=== PATIENT | male | born 2000 | race Two or more races ===

== ENCOUNTER 2020-10-29 21:04 | Inpatient (IN) | payer MEDICAID, OTHER ==
[~2020-10-29] VITALS: Ht 175.3 cm; Wt 86.2 kg
[2020-10-29] MEDS ORDERED: NALOXONE HCL 0.4 MG/ML VIAL IV ONE ×2 (21:30→22:30)
[2020-10-29 21:43] LABS: Basophils # (auto) 0.1 10 ^3/uL (0-0.2); Basophils % (auto) 0.3 % (0.0-2.0); Eosinophils # (auto) 0.1 10 ^3/uL (0-0.8); Eosinophils % (auto) 0.6 % (0.0-7.0); Hematocrit 52.7 % (41.0-53.0); Hemoglobin 17.2 g/dL (13.5-17.5); Lymphocytes # (auto) 2.7 10 ^3/uL (0.4-5.4); Lymphocytes % (auto) 14.1 % (10.0-50.0); Mean Corpuscular Hemoglobin 31.8 pg (28.0-32.0); Mean Corpuscular Hgb Conc. 32.6 g/dL (32.0-36.0); Mean Corpuscular Volume 97.7 fL (80.0-100.0); Monocytes # (auto) 1.4 10 ^3/uL (0-1.3); Monocytes % (auto) 7.4 % (0.0-12.0); Neutrophils % (auto) 77.6 % (37.0-80.0); Platelet Count (auto) 285 10^3/uL (140-450); Red Cell Distribution Width 13.3 % (11.8-14.3); White Blood Cell 19.3 10^3/uL (4.4-10.8)
[2020-10-29] MEDS ORDERED: SODIUM CHLORIDE 0.9% 1,000 ML IV ONE (21:45)
[2020-10-29 21:58] LABS: Calcium 8.1 mg/dL (8.5-10.1); Potassium 3.4 mmol/L (3.5-5.1)
[2020-10-29 22:03] LABS: BUN/Creatinine Ratio 8.8; Bilirubin, Total 0.3 mg/dL (0.2-1.0); Total Protein 7.5 g/dL (6.4-8.2)
[2020-10-29] MEDS ORDERED: THIAMINE 100mg/ml INJ (200mg/2ml VIAL) IV ONE (23:15)
[2020-10-30 05:10] LABS: Alcohol, Urine < 3.0 mg/dL (0-10); Amphetamine Screen, Urine NEGATIVE (NEGATIVE); Barbiturate Scree,Urine NEGATIVE (NEGATIVE); Benzodiazephine Screen, Urine NEGATIVE (NEGATIVE); Cannabinoid Screen, Urine POSITIVE (NEGATIVE); Cocaine Screen, Urine NEGATIVE (NEGATIVE); Phencyclidine Screen, Urine NEGATIVE (NEGATIVE)
[2020-10-30 05:16] LABS: Opiate Scree,Urine NEGATIVE (NEGATIVE)
[2020-10-30] MEDS ORDERED: cefTRIAXone 1GM/50ML D5W 50 ML IV SCH (09:00)
[2020-10-30] MEDS ORDERED: ONDANSETRON HCL 4 MG/2 ML VIAL IV PRN (09:00)
[2020-10-30] MEDS ORDERED: MORPHINE SULF INJ 2 MG/ML SYRINGE 1ML IV PRN (09:00)
[2020-10-30] MEDS ORDERED: ACETAMINOPHEN 500 MG TAB PO PRN (09:00)
[2020-10-30] MEDS ORDERED: HYDROcodone-ACET 5/325MG TAB PO PRN (09:00)
[2020-10-30] MEDS ORDERED: POTASSIUM CHL 20 Meq TABLET PO ONE (09:15)
[2020-10-30 09:17] LABS: Urine Bacteria NONE SEEN /hpf (None Seen); Urine Blood Negative /uL (Negative); Urine Hyaline Cast FEW /lpf (0 - 2); Urine Mucus FEW (None Seen); Urine Specific Gravity 1.016 (1.001-1.035); Urine WBC 1 /hpf (0 - 3)
[2020-10-30] MEDS ORDERED: ASCORBIC ACID 1,000 MG TAB PO SCH (10:00)
[2020-10-30] MEDS ORDERED: AZITHROMYCIN 500MG/D5WorNS 250ml IV SCH (10:00)
[2020-10-30] MEDS ORDERED: CHOLECALCIFEROL (VITD3) 2,000 UNIT CAP PO SCH (10:00)
[2020-10-30] MEDS ORDERED: DexAMETHasone SOD PHOS 10MG/1ML VIAL INJ IV SCH (10:00)
[2020-10-30] MEDS ORDERED: FAMOTIDINE 20 MG TAB PO SCH (10:00)
[2020-10-30] MEDS ORDERED: ZINC SULFATE 220mg CAP or TAB PO SCH (10:00)
[2020-10-30] MEDS: ENOXAPARIN SOD 40 MG/0.4 ML SYRINGE SC SCH (10:26)
[2020-10-30] MEDS: BUDESONIDE (INHALATION) 180 MCG IH IN SCH ×2 (10:54→22:16)
[2020-10-30] MEDS ORDERED: FOLIC ACID 1 MG, MULTIPLE VITAMIN 10 ML, MAGNESIUM SULF SDV 50% 8 MEQ, THIAMINE INJ 100... INJ SCH ×5 (12:00)
[2020-10-30 12:08] LABS: CRP High Sensitivity 4.28 mg/dL (< 0.3)
[2020-10-30] MEDS: ALBUTEROL SULF HFA 90MCG INH 200DOSE IN PRN (22:16)
[2020-10-31] MEDS: ENOXAPARIN SOD 40 MG/0.4 ML SYRINGE SC SCH (00:21)
[2020-10-31 02:01] VITALS: BP 114/74
[2020-10-31 07:07] LABS: Basophils # (auto) 0 10 ^3/uL (0-0.2); Basophils % (auto) 0.1 % (0.0-2.0); Eosinophils # (auto) 0 10 ^3/uL (0-0.8); Eosinophils % (auto) 0.1 % (0.0-7.0); Hematocrit 49.6 % (41.0-53.0); Hemoglobin 16.4 g/dL (13.5-17.5); Lymphocytes # (auto) 1.5 10 ^3/uL (0.4-5.4); Lymphocytes % (auto) 8.9 % (10.0-50.0); Mean Corpuscular Hemoglobin 32.5 pg (28.0-32.0); Mean Corpuscular Hgb Conc. 33.1 g/dL (32.0-36.0); Mean Corpuscular Volume 98.1 fL (80.0-100.0); Monocytes # (auto) 1.2 10 ^3/uL (0-1.3); Monocytes % (auto) 7.1 % (0.0-12.0); Neutrophils # (auto) 14.2 10 ^3/uL (1.6-8.6); Neutrophils % (auto) 83.8 % (37.0-80.0); Nucleated Red Blood Cells % 0.1 %; Platelet Count (auto) 262 10^3/uL (140-450); Red Blood Cells 5.05 10^6/uL (4.5-5.90); Red Cell Distribution Width 13.6 % (11.8-14.3); White Blood Cell 16.9 10^3/uL (4.4-10.8)
[2020-10-31 07:09] LABS: Albumin 3.5 g/dL (3.4-5.0); Calcium 9.1 mg/dL (8.5-10.1); Potassium 3.8 mmol/L (3.5-5.1)
[2020-10-31 07:13] LABS: BUN/Creatinine Ratio 16.9; Bilirubin, Total 1.1 mg/dL (0.2-1.0); Total Protein 7.3 g/dL (6.4-8.2)
[2020-10-31] MEDS: BUDESONIDE (INHALATION) 180 MCG IH IN SCH (08:45)
[2020-10-31] MEDS: ALBUTEROL SULF HFA 90MCG INH 200DOSE IN PRN (09:05)
== END 2020-10-31 07:46 | disposition left against medical advice (07) | DRG 139 ==
LOC: ER 21:04 → TELE 21:05
PROVIDERS: ADMIT Nurse Practitioner Acute Care; ATTEND Nurse Practitioner Acute Care
DX: J18.1 Lobar pneumonia, unspecified organism (principal); J96.01 Acute respiratory failure with hypoxia; E87.6 Hypokalemia; G92 Toxic encephalopathy; N17.0 Acute kidney failure with tubular necrosis; F12.90 Cannabis use, unspecified, uncomplicated; Z20.828 Contact with and (suspected) exposure to other viral communicable diseases; R73.9 Hyperglycemia, unspecified; F19.10 Other psychoactive substance abuse, uncomplicated; D72.829 Elevated white blood cell count, unspecified
CPT/HCPCS: 36415; 71045; 80053; 80307; 80320; 81001; 82728; 83036; 83615; 83735; 85025; 85379; 86141; 87040; 87426; 87804; 94640; 96361; 96374; 96375; 96376; G0378; J0696; J1100; J2405

== ENCOUNTER 2024-11-20 05:33 | Inpatient (IN) | payer MEDICAID, OTHER ==
[~2024-11-20] VITALS: Ht 172.7 cm; Wt 79.5 kg
[2024-11-20 06:00] VITALS: PULSE 124; RESP 22; O2SAT 75
--- NOTE | 2024-11-20 06:26 | DVH ---
CHEST RADIOGRAPH Indication: Overdose Technique: Single frontal view of the chest was obtained Comparison: CHEST PORTABLE on DOS: 10/31/20 FINDINGS: Lines and Tubes: None Lungs: Bilateral opacities. Pleura: No effusion. No pneumothorax. Cardiomediastinal contours: Unremarkable Bones: No acute osseous abnormality. IMPRESSION: 1. Bilateral opacities which may reflect pulmonary edema or sequelae of aspiration.
[2024-11-20] MEDS: SODIUM CHLORIDE 0.9% 1,000 ML IV ONE (06:29)
--- NOTE | 2024-11-20 06:33 | ED.PDOC ---
Altered Mental Status HPI Comments 24Y M presents to ED via EMS for chief complaint overdose. Per EMS, pt took pills last night and became lethargic around 0330 today. Pt then became unresponsive and apneic at approximately 0500, which is when the family called 911. Upon EMS arrival, pt was bagged on arrival as O2sat was in the 70s and pt was cyanotic. Pt was provided Narcan 4mg IN and 4.5mg IV. Pt woke up after being given Narcan. Chief Complaint: Overdose Time Seen by MD: 05:55 Primary Care Provider: STEVEN Reviewed Notes: Nurses Notes, Damaged Freight Inspector Notes, Medications, Allergies Allergies: Coded Allergies: NO KNOWN ALLERGIES (Unverified , 08/13/16) Information Source: Patient, Relative (Mother), Emergency Med Personnel Mode of Arrival: EMS Brought in by: EMS Severity: Moderate Timing: Hours Duration: Since onset Quality: Decreased Alertness Recent: None History of: None Associated Signs and Symptoms: None Past Medical History PAST MEDICAL HISTORY: Unobtainable Surgical History: Unobtainable Family History Family History: Unobtainable Social History Smoker: Secondhand Alcohol: Unobtainable Drugs: Unobtainable Lives In: Home Constitutional: reports: weakness; denies: chills, diaphoresis, fatigue, fever, malaise, sweats, others EENTM: denies: blurred vision, double vision, ear bleeding, ear discharge, ear drainage, ear pain, ear ringing, eye pain, eye redness, hearing loss, mouth pain, mouth swelling, nasal discharge, nose bleeding, nose congestion, nose pain, photophobia, tearing, throat pain, throat swelling, voice changes, others Respiratory: denies: cough, hemoptysis, orthopnea, SOB at rest, shortness of breath, SOB with excertion, stridor, wheezing, others Cardiovascular: denies: chest pain, dizzy spells, diaphoresis, Dyspnea on ex ertion, edema, irregular heart beat, left arm pain, lightheadedness, palpitations, PND, syncope, others Gastrointestinal: denies: abdomen distended, abdominal pain, blood streaked bowels, constipated, diarrhea, dysphagia, difficulty swallowing, hematemesis, melena, nausea, poor appetite, poor fluid intake, rectal bleeding, rectal pain, vomiting, others Genitourinary: denies: burning, dysuria, flank pain, frequency, hematuria, incontinence, penile discharge, penile sore, pain, testicle pain, testicle swelling, urgency, others Neurological: denies: dizziness, fainting, headache, left sided numbness, left sided weakness, numbness, paresthesia, pre-existing deficit, right sided numbness, right sided weakness, seizure, speech problems, tingling, tremors, weakness, others Musculoskeletal: denies: back pain, gout, joint pain, joint swelling, muscle pain, muscle stiffness, neck pain, others Integumetry: denies: bruises, change in color, change in hair/nails, dryness, laceration, lesions, lumps, rash, wounds, others Allergic/Immunocompromised: denies: Difficulty Healing, Frequent Infections, Hives, Itching, others Hematologic/Lymphatic: denies: anemia, blood clots, easy bleeding, easy bruising, swollen glands, others Endocrine: denies: excessive hunger, excessive sweating, excessive thirst, excessive urination, flushing, intolerance to cold, intolerance to heat, unexplained weight gain, unexplained weight loss, others Psychiatric: denies: anxiety, bipolar disorder, depression, hopeless, panic disorder, schizophrenia, sleepless, suicidal, others All Other Systems: Reviewed and Negative Physical Exam General Appearance: No Apparent Distress, Normal HEENT: Normal ENT Inspection, Pharynx Normal, TMs Normal Neck: Full Range of Motion, Non-Tender, Normal, Normal Inspection Respiratory: Chest Non-Tender, Lungs Clear, No Accessory Muscle Use, No Respiratory Distress, Normal Breath Sounds Cardiovascular: No Edema, No JVD, No Murmur, No Gallop, Normal Peripheral Pulses, Regular Rate/Rhythm Breast Exam: Deferred Gastrointestinal: No Organomegaly, Non Tender, No Pulsatile Mass, Normal Bowel Sounds, Soft Genitalia: Deferred Pelvic: Deferred Rectal: Deferred Extremities: No calf tenderness, Normal capillary refill, Normal inspection, Normal range of motion, Non-tender, No pedal edema Musculoskeletal : Apperance: Normal Neurologic: Alert, voip technician II-XII nml as Tested, No Motor Deficits, Normal Affect, Normal Mood, No Sensory Deficits Cerebellar Function: NOT DONE Reflexes: NOT DONE Skin: Dry, Normal Color, Warm Lymphatic: No Adenopathy Was a procedure done? Was a procedure done?: No Differential Diagnosis (ALOC) Differential Diagnosis: Drug Overdose X-Ray, Labs, Meds, VS Vital Signs Date Time Temp Pulse Resp B/P (MAP) Pulse Ox O2 Delivery O2 Flow Rate FiO2 11/20/24 10:00 98.0 117 16 108/63 (78) 91 98.0 11/20/24 09:44 98.1 115 20 128/84 (99) 93 98.1 11/20/24 08:00 117 11/20/24 07:24 98.1 130 20 121/82 (95) 95 98.1 11/20/24 06:30 121 19 139/86 (103) 93 11/20/24 06:03 98.2 124 22 132/84 (100) 75 98.2 11/20/24 06:00 124 22 75 Room Air* 0 21 11/20/24 06:00 124 11/20/24 05:44 97.6 118 28 153/93 (113) 95 Lab Test 11/20/24 10:08 11/20/24 08:05 Range/Units Lactic Acid Level 2.6 *H 3.5 *H 0.4-2.0 mmol/L White Blood Count 7.4 4.4-10.8 10^3/uL Red Blood Count 5.53 4.5-5.90 10^6/uL Hemoglobin 17.1 13.5-17.5 g/dL Hematocrit 52.0 41.0-53.0 % Mean Corpuscular Volume 94.0 80.0-100.0 fL Mean Corpuscular Hemoglobin 30.9 28.0-32.0 pg Mean Corpuscular Hemoglobin Concent 32.9 32.0-36.0 g/dL Red Cell Distribution Width 13.9 11.8-14.3 % Platelet Count 282 140-450 10^3/uL Mean Platelet Volume 8.4 6.9-10.8 fL Neutrophils (%) (Auto) 37.0-80.0 % Lymphocytes (%) (Auto) 10.0-50.0 % Monocytes (%) (Auto) 0.0-12.0 % Basophils (%) (Auto) 0.0-2.0 % Neutrophils # (Auto) 1.6-8.6 10 ^3/uL Lymphocytes # (Auto) 0.4-5.4 10 ^3/uL Monocytes # (Auto) 0-1.3 10 ^3/uL Differential Total Cells Counted Pending Neutrophils % (Manual) Pending Band Neutrophils % (Manual) Pending Lymphocytes % (Manual) Pending Monocytes % (Manual) Pending Eosinophils % (Manual) Pending Basophils % (Manual) Pending Metamyelocytes % (manual) Pending Myelocytes % (Manual) Pending Promyelocytes % (Manual) Pending Blast Cells % (Manual) Pending Reactive Lymphocytes Pending Platelet Estimate Pending Sodium Level 141 136-145 mmol/L Potassium Level 5.0 3.5-5.1 mmol/L Chloride Level 107 98-107 mmol/L Carbon Dioxide Level 28 20-31 mmol/L Anion Gap 6 5-15 Blood Urea Nitrogen 13 9-23 mg/dL Creatinine 0.86 0.700-1.30 mg/dL Glomerular Filtration Rate Calc 123 >90 mL/min BUN/Creatinine Ratio 15.1 10.0-20.0 Serum Glucose 119 H 74-106 mg/dL Calcium Level 9.6 8.7-10.4 mg/dL Total Bilirubin 0.4 0.2-1.0 mg/dL Aspartate Amino Transferase (AST) 31 13-40 U/L Alanine Aminotransferase (ALT) 26 7-40 U/L Alkaline Phosphatase 65 46-116 U/L Total Protein 7.2 5.7-8.2 g/dL Albumin 4.8 3.2-4.8 g/dL Current Medications Medications (Trade) Dose Ordered Sig/Edmar Route Start Time Stop Time Status Last Admin Sodium Chloride 1,000 ml @ 1,000 mls/hr Q1H ONCE IV 11/20/24 06:15 11/20/24 07:14 DC 11/20/24 06:29 Ondansetron HCl (Zofran) 4 mg ONCE ONCE IV 11/20/24 06:15 11/20/24 06:16 DC 11/20/24 06:40 Naloxone HCl (Narcan) 2 mg ONCE ONCE IV 11/20/24 06:37 11/20/24 06:47 DC 11/20/24 06:[address] [address] Ph: [phone] DIAGNOSTIC IMAGING Diagnostic Imaging Report : [id number] Signed PATIENT: LONGCLEO BARILLAS ACCT: [id number] UNIT: [id number] : 2000 LOC: ER ROOM / BED: / AGE / SEX: 24 / M ADM STATUS: REG ER SERVICE 3 ORDERING PHYSICIAN: BEVERLY ARROYO MD PROCEDURE(s): CXRP - CHEST PORTABLE REASON: overdose ORDER NUMBER(s): [id number], ACCESSION NUMBER(s): [id number] CHEST RADIOGRAPH Indication: Overdose Technique: Single frontal view of the chest was obtained Comparison: CHEST PORTABLE on DOS: 10/31/20 FINDINGS: Lines and Tubes: None Lungs: Bilateral opacities. Pleura: No effusion. No pneumothorax. Cardiomediastinal contours: Unremarkable Bones: No acute osseous abnormality. IMPRESSION: 1. Bilateral opacities which may reflect pulmonary edema or sequelae of aspiration. ATED BY: AILYN DAVISON MD DICTATED DATE/TIME: 11/20/24623 SIGNED BY: AILYN DAVISON MD SIGNED DATE/TIME: 11/20/24623 CC: Time of 1ST Reevaluation: 06:25 Reevaluation 1ST: Unchanged Patient Education/Counseling: Diagnosis, Treatment Family Education/Counseling: Diagnosis, Treatment Departure 1 Departure Time of Disposition: 11:27 (Patient presents with bilateral pneumonia likely secondary from aspiration an opiate overdose. Patient is still requiring oxygen we will empirically cover patient with antibiotics IV fluids and admit patient for further workup) Impression: Primary Impression: Opiate overdose Qualified Codes: T40.601A - Poisoning by unspecified narcotics, accidental (unintentional), initial encounter Additional Impressions: Multifocal pneumonia Hypoxia Disposition: ADMITTED INPATIENT Admit to: Med Surg Condition: Guarded Critical Care Note Critical Care Time?: Yes Critical care comment: Acute shortness of breath Authorized and Performed by: Beverly Arroyo MD Total critical care time: Approximately 34 minutes Due to a high probability of clinically significant, life threatening deterioration, the patient required my highest level of preparedness to intervene emergently and I personally spent this critical care time directly and personally managing the patient. This critical care time included obtaining a history; examining the patient; pulse oximetry; ordering and review of studies; arranging urgent treatment with development of a management plan; evaluation of patient's response to treatment; frequent reassessment; and, discussions with other providers. This critical care time was performed to assess and manage the high probability of imminent, life-threatening deterioration that could result in multi-organ failure. It was exclusive of separately billable procedures and treating other patients and teaching time. Please see my other sections and the rest of the note for further information on patient assessment and treatment. Stability Stability form required: No Heart Score Heart Score: Heart Score Response (Comments) Value History N/A 0 EKG N/A 0 Age N/A 0 Risk Factors N/A 0 Troponin N/A 0 Total 0 I personally scribed for BEVERLY ARROYO MD ([facility]) on 11/20/24 at 06:33. Electronically submitted by Debby Kaba ([email or web address]). I personally scribed for BEVERLY [facility]ROYO MD ([facility]) on 11/20/24 at 07:22. Electronically submitted by Debby Kaba [email or web address]). BEVERLY ARROYO MD Nov 20, 2024 06:33
[2024-11-20] MEDS: ONDANSETRON HCL 4 MG/2 ML VIAL IV ONE ×2 (06:40→11:45)
[2024-11-20] MEDS: NALOXONE HCL 1MG/ML 2ML SYRINGE ONE (06:47)
[2024-11-20] MEDS: NALOXONE HCL 1MG/ML 2ML SYRINGE IV ONE (06:48)
[2024-11-20 08:44] LABS: Alanine Aminotransferase 26 U/L (7-40); Albumin 4.8 g/dL (3.2-4.8); Alkaline Phosphatase 65 U/L (46-116); Anion Gap 6 (5-15); Aspartate Aminotransferase 31 U/L (13-40); BUN/Creatinine Ratio 15.1 (10.0-20.0); Blood Urea Nitrogen 13 mg/dL (9-23); Calcium 9.6 mg/dL (8.7-10.4); Carbon Dioxide 28 mmol/L (20-31); Sodium 141 mmol/L (136-145)
[2024-11-20 08:45] LABS: Bilirubin, Total 0.4 mg/dL (0.2-1.0); Total Protein 7.2 g/dL (5.7-8.2)
[2024-11-20 09:02] LABS: Chloride 107 mmol/L (98-107); Glucose 119 mg/dL (74-106); Lactic Acid w/Reflex 3.5 mmol/L (0.4-2.0)
[2024-11-20 09:03] LABS: Hemoglobin 17.1 g/dL (13.5-17.5); Mean Corpuscular Hemoglobin 30.9 pg (28.0-32.0); Mean Corpuscular Hgb Conc. 32.9 g/dL (32.0-36.0); Platelet Count (auto) 282 10^3/uL (140-450); Red Blood Cells 5.53 10^6/uL (4.5-5.90); Red Cell Distribution Width 13.9 % (11.8-14.3); White Blood Cell 7.4 10^3/uL (4.4-10.8)
[2024-11-20 09:06] LABS: Band Neutrophils % (manual) 0; Basophils % (manual) 0 (0.0-2.0); Blast Cells 0; Eosinophils % (manual) 0 (0-7); Metamyelocytes % 0; Myelocytes % 0; Promyelocytes % 0; Reactive Lymphocytes 0
[2024-11-20 11:38] LABS: Lymphocytes % (manual) 13 (10.0-50.0); Monocytes % (manual) 4 (0-12); Platelet Estimate Adequate
[2024-11-20] MEDS: CEFEPIME 2GM/50ML NS 50 ML IV ONE (11:45)
[2024-11-20] MEDS: SODIUM CHLORIDE 0.9% 2,000 ML IV ONE (11:45)
[2024-11-20] MEDS: VANCOMYCIN 1GM/250ML KIT 200 ML IV ONE (11:51)
[2024-11-20] MEDS: AZITHROMYCIN 250 MG TAB PO ONE (12:39)
[2024-11-20] MEDS ORDERED: ONDANSETRON HCL 4 MG/2 ML VIAL IV PRN (16:30)
[2024-11-20] MEDS ORDERED: HYDROmorphone HCL 2 MG/ML VL/or syr IV PRN (16:30)
[2024-11-20] MEDS ORDERED: HYDROcodone-ACET 5/325MG TAB PO PRN (16:30)
[2024-11-20] MEDS ORDERED: ACETAMINOPHEN 325 MG TAB PO PRN (16:30)
[2024-11-20] MEDS ORDERED: DOCUSATE SOD 100 MG CAP PO PRN (16:30)
--- NOTE | 2024-11-20 16:37 | DVHHP2 ---
Admitting Diagnosis: Overdose Syncope History of Present Illness 24Y M presents to ED via EMS for chief complaint overdose. Per EMS, pt took pills last night and became lethargic around 0330 today. Pt then became unresponsive and apneic at approximately 0500, which is when the family called 911. Upon EMS arrival, pt was bagged on arrival as O2sat was in the 70s and pt was cyanotic. Pt was provided Narcan 4mg IN and 4.5mg IV. Pt woke up after being given Narcan. In ED patient is awake, alert, answering questions but confused with some of the instrument. Girlfriend is at the bedside. Girlfriend states that patient was passed out and nonresponsive. Patient does not recall. Currently resting comfortably, hypoxic without oxygen, tachycardic while resting. Patient had one episode of emesis and low further emesis. Currently not nauseous Patient does not recall which medication he was taking. She thought he was opiates for recreational not for pain. No fever chills, shortness for breath, nausea, constipation or diarrhea. PAST MEDICAL HISTORY: Unobtainable Surgical History: Unobtainable Family History: Unobtainable Social History Smoker: Secondhand Alcohol: Unobtainable Drugs: Unobtainable Lives In: Home Allergies: Coded Allergies: NO KNOWN ALLERGIES (Unverified , 08/13/16) Vital Signs Vital Signs Date Time Temp Pulse Resp B/P (MAP) Pulse Ox O2 Delivery O2 Flow Rate FiO2 11/20/24 16:00 114 11/20/24 16:00 98.3 12 110/70 (83) 90 98.3 11/20/24 06:00 Room Air* 0 21 Physical Exam Generally-74 years old male, well nourished well developed. No apparent distress HEENT-atraumatic normocephalic Heart-tachycardic Lungs clear to auscultate bilaterally Abdomen soft nontender nondistended Musculoskeletal-no edema cyanosis Neuro-awake, alert, confused, strength intact sensory intact. Results Labs Test 11/20/24 15:52 11/20/24 10:08 11/20/24 08:05 Range/Units Lactic Acid Level 2.6 *H 0.4-2.0 mmol/L White Blood Count 7.4 4.4-10.8 10^3/uL Red Blood Count 5.53 4.5-5.90 10^6/uL Hemoglobin 17.1 13.5-17.5 g/dL Hematocrit 52.0 41.0-53.0 % Mean Corpuscular Volume 94.0 80.0-100.0 fL Mean Corpuscular Hemoglobin 30.9 28.0-32.0 pg Mean Corpuscular Hemoglobin Concent 32.9 32.0-36.0 g/dL Red Cell Distribution Width 13.9 11.8-14.3 % Platelet Count 282 140-450 10^3/uL Mean Platelet Volume 8.4 6.9-10.8 fL Neutrophils (%) (Auto) 37.0-80.0 % Lymphocytes (%) (Auto) 10.0-50.0 % Monocytes (%) (Auto) 0.0-12.0 % Basophils (%) (Auto) 0.0-2.0 % Neutrophils # (Auto) 1.6-8.6 10 ^3/uL Lymphocytes # (Auto) 0.4-5.4 10 ^3/uL Monocytes # (Auto) 0-1.3 10 ^3/uL Differential Total Cells Counted 100.0 100 Neutrophils % (Manual) 83 H 37.0-80.0 Band Neutrophils % (Manual) 0 Lymphocytes % (Manual) 13 10.0-50.0 Monocytes % (Manual) 4 0-12 Eosinophils % (Manual) 0 0-7 Basophils % (Manual) 0 0.0-2.0 Metamyelocytes % (manual) 0 Myelocytes % (Manual) 0 Promyelocytes % (Manual) 0 Blast Cells % (Manual) 0 Reactive Lymphocytes 0 Platelet Estimate Adequate Sodium Level 141 136-145 mmol/L Potassium Level 5.0 3.5-5.1 mmol/L Chloride Level 107 98-107 mmol/L Carbon Dioxide Level 28 20-31 mmol/L Anion Gap 6 5-15 Blood Urea Nitrogen 13 9-23 mg/dL Creatinine 0.86 0.700-1.30 mg/dL Glomerular Filtration Rate Calc 123 >90 mL/min BUN/Creatinine Ratio 15.1 10.0-20.0 Serum Glucose 119 H 74-106 mg/dL Calcium Level 9.6 8.7-10.4 mg/dL Total Bilirubin 0.4 0.2-1.0 mg/dL Aspartate Amino Transferase (AST) 31 13-40 U/L Alanine Aminotransferase (ALT) 26 7-40 U/L Alkaline Phosphatase 65 46-116 U/L Total Protein 7.2 5.7-8.2 g/dL Albumin 4.8 3.2-4.8 g/dL Primary Diagnosis Drug overdose intentional Syncope Acute hypoxia Plan Patient's sats 88- 87 on room air without using nasal cannula Pending urine drug studies Chest x-ray shows bilateral opacity likely due to aspiration Unasyn for aspiration pneumonia Check sputum culture, blood culture Oxygen saturation goal greater than 92% Trend lactic acid until less than two. Order another L and LR at 150 cc an hour Neuro check per floor protocol Regular diet Full code Lovenox for DVT prophylaxis GI prophylaxis Plan discussed with: Patient Problems List: (1) Aspiration pneumonia (2) Opiate overdose Status: Acute (3) Hypoxia Status: Acute (4) Altered mental status Status: Acute Date of Service: Nov 20, 2024 Billing Provider: ELENA SOARES MD Common Visit Codes: [id number] INP/OBS CARE (HIGH) ELENA SOARES MD Nov 20, 2024 16:37
[2024-11-20] MEDS: LACTATED RINGER'S 1,000 ML IV ONE ×2 (16:45)
[2024-11-20 16:51] LABS: Amphetamine Screen, Urine Neg (NEGATIVE); Barbiturate Scree,Urine Neg (NEGATIVE); Benzodiazephine Screen, Urine Neg (NEGATIVE); Cannabinoid Screen, Urine Pos (NEGATIVE); Cocaine Screen, Urine Neg (NEGATIVE); Opiate Scree,Urine Neg (NEGATIVE); Phencyclidine Screen, Urine Neg (NEGATIVE)
[2024-11-20] MEDS: AMPICILLIN & SULBACTAM SODIUM 3 GM in SODIUM CHL 0.9% 100 ML IV SCH (17:00)
[2024-11-20 19:30] VITALS: PULSE 103; RESP 17; O2SAT 92
[2024-11-20] MEDS: SODIUM CHLOR 0.9% PF (SALINE LOCK) 10ML VIAL/SYR IV SCH (22:11)
[2024-11-21 04:12] LABS: Basophils # (auto) 0 10 ^3/uL (0-0.2); Basophils % (auto) 0.3 % (0.0-2.0); Eosinophils # (auto) 0 10 ^3/uL (0-0.8); Eosinophils % (auto) 0.4 % (0.0-7.0); Hematocrit 43.3 % (41.0-53.0); Hemoglobin 14.7 g/dL (13.5-17.5); Lymphocytes # (auto) 2.2 10 ^3/uL (0.4-5.4); Lymphocytes % (auto) 19.9 % (10.0-50.0); Mean Corpuscular Hemoglobin 31.4 pg (28.0-32.0); Mean Corpuscular Hgb Conc. 33.9 g/dL (32.0-36.0); Mean Corpuscular Volume 92.5 fL (80.0-100.0); Monocytes # (auto) 0.7 10 ^3/uL (0-1.3); Neutrophils # (auto) 8.2 10 ^3/uL (1.6-8.6); Neutrophils % (auto) 73.4 % (37.0-80.0); Platelet Count (auto) 227 10^3/uL (140-450); Red Blood Cells 4.68 10^6/uL (4.5-5.90); Red Cell Distribution Width 13.6 % (11.8-14.3); White Blood Cell 11.2 10^3/uL (4.4-10.8)
[2024-11-21 04:30] LABS: Alanine Aminotransferase 18 U/L (7-40); Albumin 4.2 g/dL (3.2-4.8); Alkaline Phosphatase 51 U/L (46-116); Anion Gap 7 (5-15); Aspartate Aminotransferase 18 U/L (13-40); BUN/Creatinine Ratio 7.5 (10.0-20.0); Calcium 9.6 mg/dL (8.7-10.4); Carbon Dioxide 24 mmol/L (20-31); Glucose 100 mg/dL (74-106); Potassium 3.8 mmol/L (3.5-5.1); Sodium 139 mmol/L (136-145); Total Protein 6.6 g/dL (5.7-8.2)
[2024-11-21 04:31] LABS: Bilirubin, Total 1.9 mg/dL (0.2-1.0); Blood Urea Nitrogen 5 mg/dL (9-23); Chloride 108 mmol/L (98-107)
[2024-11-21] MEDS: ENOXAPARIN SOD 40 MG/0.4 ML SYRINGE SC SCH (12:17)
[2024-11-21 14:44] VITALS: BP 112/82; PULSE 99; RESP 17; TEMP 98.3; O2SAT 97
[2024-11-21 16:17] VITALS: PULSE 99; RESP 17; O2SAT 97
[2024-11-21 17:20] VITALS: BP 137/86; PULSE 104; RESP 18; TEMP 97.8; O2SAT 96
--- NOTE | 2024-11-21 18:05 | DVHDS2 ---
Discharge Summary Date of Admission Nov 20, 2024 at 16:27 Date of Discharge: Nov 21, 2024 Labs/Diagnostic Data: Laboratory Results Test 11/21/24 03:59 11/20/24 19:44 11/20/24 17:34 11/20/24 15:52 White Blood Count 11.2 10^3/uL (4.4-10.8) Red Blood Count 4.68 10^6/uL (4.5-5.90) Hemoglobin 14.7 g/dL (13.5-17.5) Hematocrit 43.3 % (41.0-53.0) Mean Corpuscular Volume 92.5 fL (80.0-100.0) Mean Corpuscular Hemoglobin 31.4 pg (28.0-32.0) Mean Corpuscular Hemoglobin Concent 33.9 g/dL (32.0-36.0) Red Cell Distribution Width 13.6 % (11.8-14.3) Platelet Count 227 10^3/uL (140-450) Mean Platelet Volume 8.2 fL (6.9-10.8) Neutrophils (%) (Auto) 73.4 % (37.0-80.0) Lymphocytes (%) (Auto) 19.9 % (10.0-50.0) Monocytes (%) (Auto) 6.0 % (0.0-12.0) Eosinophils (%) (Auto) 0.4 % (0.0-7.0) Basophils (%) (Auto) 0.3 % (0.0-2.0) Neutrophils # (Auto) 8.2 10 ^3/uL (1.6-8.6) Lymphocytes # (Auto) 2.2 10 ^3/uL (0.4-5.4) Monocytes # (Auto) 0.7 10 ^3/uL (0-1.3) Eosinophils # (Auto) 0 10 ^3/uL (0-0.8) Basophils # (Auto) 0 10 ^3/uL (0-0.2) Nucleated Red Blood Cells 0.0 % Sodium Level 139 mmol/L (136-145) Potassium Level 3.8 mmol/L (3.5-5.1) Chloride Level 108 mmol/L (98-107) Carbon Dioxide Level 24 mmol/L (20-31) Anion Gap 7 (5-15) Blood Urea Nitrogen 5 mg/dL (9-23) Creatinine 0.67 mg/dL (0.700-1.30) Glomerular Filtration Rate Calc 133 mL/min (>90) BUN/Creatinine Ratio 7.5 (10.0-20.0) Serum Glucose 100 mg/dL (74-106) Calcium Level 9.6 mg/dL (8.7-10.4) Total Bilirubin 1.9 mg/dL (0.2-1.0) Aspartate Amino Transferase (AST) 18 U/L (13-40) Alanine Aminotransferase (ALT) 18 U/L (7-40) Alkaline Phosphatase 51 U/L (46-116) Total Protein 6.6 g/dL (5.7-8.2) Albumin 4.2 g/dL (3.2-4.8) Troponin I High Sensitivity 12 ng/L (</=54) Lactic Acid Level 1.6 mmol/L (0.4-2.0) Urine Opiates Screen Neg (NEGATIVE) Urine Fentanyl Screen Neg (NEGATIVE) Urine Barbiturates Screen Neg (NEGATIVE) Urine Phencyclidine Screen Neg (NEGATIVE) Urine Amphetamines Screen Neg (NEGATIVE) Urine Benzodiazepines Screen Neg (NEGATIVE) Urine Cocaine Screen Neg (NEGATIVE) Urine Cannabinoids Screen Pos (NEGATIVE) Test 11/20/24 08:05 Differential Total Cells Counted 100.0 (100) Neutrophils % (Manual) 83 (37.0-80.0) Band Neutrophils % (Manual) 0 Lymphocytes % (Manual) 13 (10.0-50.0) Monocytes % (Manual) 4 (0-12) Eosinophils % (Manual) 0 (0-7) Basophils % (Manual) 0 (0.0-2.0) Metamyelocytes % (manual) 0 Myelocytes % (Manual) 0 Promyelocytes % (Manual) 0 Blast Cells % (Manual) 0 Reactive Lymphocytes 0 Platelet Estimate Adequate Other Laboratory Tests 11/21/24 03:59 Brief Hx & Hospital Course: 24Y M presents to ED via EMS for chief complaint overdose. Per EMS, pt took pills last night and became lethargic around 0330 today. Pt then became unresponsive and apneic at approximately 0500, which is when the family called 911. Upon EMS arrival, pt was bagged on arrival as O2sat was in the 70s and pt was cyanotic. Pt was provided Narcan 4mg IN and 4.5mg IV. Pt woke up after being given Narcan. Patient continued to remain somnolent, awakens for few seconds to tactile stimuli only. Patient is hypoxic without oxygen. only 1x emesis and no further. On admit labs patient has leukocytosis, lactic acidosis, chest x-ray with concern for aspiration pneumonia. Next a.m. labs improve. Patient's somnolence resolves and patient becomes A&O times 3-4. On visit patient admits to using Percocet , which he believes may have been fentanyl. Patient denies any SI. Patient is back to baseline, ready for discharge with plan below. diagnosis: substance abuse with overdose, unknown substance, likely opiate; hypoxic respiratory failure, resolved; lactic acidosis resolved; aspiration pneumonitis likely; chronic seborrheic dermatitis discharge plan: - patient to use conservative measures for seborrheic dermatitis including Nizoral shampoo, keeping skin moist after shower, avoiding excessive itching. Follow up with PCP. - avoid any substances abuse. observation under family for any recurrence of symptoms. - f/u with PCP to monitor symptoms of pneumonia as aspiration pneumonia was concern during visit. PCP to follow up on seborrheic dermatitis Visitation and planning required 35 minutes Condition at Discharge: Fair Final Diagnosis/Problems List substance abuse with overdose, unknown substance, likely opiate; hypoxic respiratory failure, resolved; lactic acidosis resolved; aspiration pneumonitis likely; Discharge Disposition: Home Discharge Instruct/Medications Diet: Regular Activity: No Restrictions, As Tolerated Follow Up/Referral: PCP Medications: as below Discharge Statement: "Patient was advised to return to the ER or call 911 if any headaches, dizziness, shortness of breath, chest pain, abdominal pain, bleeding, fevers, or worsening of medical condition. Patient was counseled about treatment plan, medications, possible side effects, patientverbalized understanding. All questions were answered to the best of my ability. This discharge took greater then 30 minutes in planning, reviewing documentation, counseling the patient, and discussing with other team members." ASSESSMENT ASSESSMENT Assessment substance abuse with overdose, unknown substance, likely opiate; hypoxic respiratory failure, resolved; lactic acidosis resolved; aspiration pneumonitis likely; Date of Service: Nov 21, 2024 Billing Provider: SALLY LESTER MD Common Visit Codes: 42012-QIW/OBS DISCH DAY >30min SALLY LESTER MD Nov 21, 2024 18:05
[2024-11-21 18:48] VITALS: BP 137/86; PULSE 104; RESP 18; TEMP 97.8; O2SAT 96
== END 2024-11-21 19:55 | disposition home or self-care (01) | DRG 817 ==
LOC: EDBD 05:33 → ER 05:33 → TELE 16:27
PROVIDERS: ADMIT Internal Medicine; ATTEND Student in an Organized Health Care Education/Training Program
DX: T40.602A Poisoning by unspecified narcotics, intentional self-harm, initial encounter (principal); J96.91 Respiratory failure, unspecified with hypoxia; J69.0 Pneumonitis due to inhalation of food and vomit; E87.20 Acidosis, unspecified; F17.200 Nicotine dependence, unspecified, uncomplicated; L21.9 Seborrheic dermatitis, unspecified; R55 Syncope and collapse; Y92.89 Other specified places as the place of occurrence of the external cause
CPT/HCPCS: 36415; 71045; 80053; 80307; 83605; 84484; 85007; 85025; 85027; 87040; 99291; G0378; J0692; J2405